=== PATIENT | male | born 1985 | race Caucasian/White ===

== ENCOUNTER 2016-11-02 17:19 | Emergency (ER) | payer OTHER ==
--- NOTE | ~2016-11-02 | CR63 ---
[facility]. [facility] A Service of [facility] & [facility] [place] RADIOLOGY TEXT RESULTS PATIENT: HI DIXON LOCATION: SED : 85 UNIT #: [id number] AGE: [address]: Abram Venegas MD SEX: M ORDER DR: [id number] [place] [id number] E MR#: [id number] Acc #: [id number] NAME: HI DIXON : 1985 SEX: M STUDY DATE/TIME: 11/02/2016 17:30 UNIT: SED ROOM: STUDY DESCRIPTION: CR Chest 2 View Attending Physician: Abram Venegas M.D. Ordering Physician: Abram Venegas M.D. Primary Care Physician: No Primary Care Physician MEDICAL IMAGING REPORT This report is preliminary unless electronic signature is present. EXAM Two-view chest. INDICATIONS Shortness of air for the past 2 days. PROCEDURE Frontal and lateral views of the chest. COMPARISON 11/05/2015. FINDINGS Heart size is unchanged. Pulmonary vessels are stable. There is hazy opacity in the left lung base, possibly in the lingula. No dense consolidation. No pleural fluid or pneumothorax. IMPRESSION Hazy opacity the left lung base, possibly in the lingula. Cannot exclude early developing infiltrate. There is no dense confluent consolidation. Dictated by... Malcolm Ingram M.D. THIS IS AN ELECTRONICALLY VERIFIED REPORT Malcolm Ingram M.D. at 11/05/2016 7:01 AM EED/gz TD: 11/03/2016 08:49 JOB #: [id number] MEDICAL IMAGING REPORT
[~2016-11-02 17:19] MED LIST: ADVAIR INH; ALBUTEROL 0.5ML INH; ALBUTEROL MININEB NEB; ALBUTEROL17 GM; ALBUTEROL17 GM INH; AZITHROMYCIN250 MG PO; BENTYL20 MG DOB; CARAFATE1 G PO; DELTASONE20 MG PO; DICLOFENAC PO; DUONEB 2.5-0.5 M3 ML NEB; FLEXERIL10 M1 PO; NORCO 10/325 TA1 TAB PO; OXYCODONE HCL5 M1 PO; PERCOCET 5-3251 TAB PO; PHENERGAN W/CO120 ML PO; PHENERGAN25 MG PO; PREDNISONE PO; PREDNISONE1 MG PO; PROAIR HFA8.5 GM IH; PROMETHAZINE D118 ML PO; PROVENTIL17 GM IH; VIBRAMYCIN100 M1 PO; ZITHROMAX PO
[2016-11-02 17:30] LABS: INFLUENZA A NEG (NEG); INFLUENZA B NEG (NEG)
[2016-11-02] MEDS ORDERED: PREDNISONE PO (18:26)
[2016-11-02] MEDS ORDERED: HYDROMET SYRUP480 ML PO (18:27)
[2016-11-02] MEDS ORDERED: ALBUTEROL17 GM INH (18:27)
[2016-11-02] MEDS ORDERED: LEVAQUIN750 M1 PO (18:28)
== END 2016-11-02 18:28 | disposition home or self-care (01) ==
LOC: SED 17:19
PROVIDERS: Emergency Medicine
DX: J44.0 Chronic obstructive pulmonary disease with (acute) lower respiratory infection (principal); J84.9 Interstitial pulmonary disease, unspecified; J18.1 Lobar pneumonia, unspecified organism; J45.909 Unspecified asthma, uncomplicated; F17.210 Nicotine dependence, cigarettes, uncomplicated; Z90.49 Acquired absence of other specified parts of digestive tract; Z79.899 Other long term (current) drug therapy
CPT/HCPCS: 71020; 87804; 94640; 99284